=== PATIENT | female | born 1965 | race Two or more races ===

== ENCOUNTER → 2017-07-29 | Emergency (ER) | payer OTHER ==
[~2017-07-29] VITALS: Ht 160 cm; Wt 102.1 kg
[~2017-07-29] MED LIST: AMBIEN10 MG PO; CARAFATE1 G PO; CATAFLAN PO; CIPRO500 MG PO; CLONAZEPAM2 MG PO; COZAAR100 MG PO; DICY10CA PO; DICY20TA PO; FLAGYL500MG PO; FLEXERIL PO; GABAPENTIN800 MG PO; INTESTINEX680 M1 PO; METFORMIN HCL500 M2 PO; NABUMETONE500 MG PO; PERCOCET 5/3251 TAB PO; PROTONIX40 MG PO; TRAMADOL HCL50 MG PO; WELLBUTRIN XL300 MG PO
== END | disposition home or self-care (01) ==
LOC: ER 06:29
DX: K57.32 Diverticulitis of large intestine without perforation or abscess without bleeding (principal)

== ENCOUNTER 2017-09-21 13:06 | Inpatient (IN) | payer OTHER ==
[~2017-09-21] VITALS: Ht 160 cm; Wt 99.8 kg
[2017-09-21] MEDS ORDERED: SYNTHROID50 MCG PO (13:56)
[2017-09-29] MEDS ORDERED: HYOSCYAMINE0.125 M1 SL (09:42)
[2017-09-29] MEDS ORDERED: NEURONTIN300 MG PO (09:42)
[2017-09-29] MEDS ORDERED: POLY119PG PO (09:43)
[2017-09-29] MEDS ORDERED: PERCOCET 5-3251 EACH PO (09:45)
== END 2017-09-29 19:25 | disposition home or self-care (01) | DRG 331 ==
LOC: SURG 09-23 07:55 → O/R 09-23 07:55 → SURH 09-23 12:45 → SURG 09-24 11:00
PROVIDERS: Surgery
PROC: 0DJD8ZZ Inspection of Lower Intestinal Tract, Via Natural or Artificial Opening Endoscopic (ICD-10-PCS; 2017-09-23)
PROC: 0DTN4ZZ Resection of Sigmoid Colon, Percutaneous Endoscopic Approach (ICD-10-PCS; principal; 2017-09-23 12:45)
DX: K57.32 Diverticulitis of large intestine without perforation or abscess without bleeding (principal); N80.5 Endometriosis of intestine; E11.9 Type 2 diabetes mellitus without complications; I10 Essential (primary) hypertension; N83.292 Other ovarian cyst, left side

== ENCOUNTER 2018-08-05 09:06 | Day surgery (SDC) | payer OTHER ==
[~2018-08-05 09:06] MED LIST changes: +HYOSCYAMINE0.125 M1 SL; +NEURONTIN300 MG PO; +PERCOCET 5-3251 EACH PO; +POLY119PG PO; +SYNTHROID50 MCG PO
== END 2018-08-05 13:20 | disposition home or self-care (01) ==
LOC: AMB-ENDOS 09:06
DX: K63.5 Polyp of colon (principal)

== ENCOUNTER 2020-09-18 05:50 | Day surgery (SDC) | payer OTHER ==
[2020-09-18] MEDS ORDERED: NABUMETONE500 MG PO (11:11)
[2020-09-18] MEDS ORDERED: PERCOCET 5-3251 EACH PO (11:11)
== END 2020-09-18 15:00 | disposition home or self-care (01) ==
LOC: CIR.AMB 05:50
PROVIDERS: ATTEND Orthopaedic Surgery
DX: M23.312 Other meniscus derangements, anterior horn of medial meniscus, left knee (principal); M23.322 Other meniscus derangements, posterior horn of medial meniscus, left knee; M65.862 Other synovitis and tenosynovitis, left lower leg; M94.262 Chondromalacia, left knee; Z20.822 Contact with and (suspected) exposure to COVID-19

== ENCOUNTER 2021-05-23 10:00 | Inpatient (IN) | payer OTHER ==
[~2021-05-23] VITALS: Ht 160 cm; Wt 95.3 kg
[2021-05-23] MEDS ORDERED: METFORMIN HCL1000 M1 PO (14:18)
[2021-05-28] MEDS ORDERED: VITAMIN E180 M1 (08:02)
[2021-05-28] MEDS ORDERED: VITAMIN D325 MC2 (08:02)
[2021-05-28] MEDS ORDERED: LISINOPRIL2.5 MG (08:02)
== END 2021-05-30 20:49 | DRG 470 ==
LOC: SURH 05-28 06:00 → O/R 05-28 06:00 → SURH 05-28 07:00
PROVIDERS: ADMIT Orthopaedic Surgery; ATTEND Orthopaedic Surgery
PROC: 0SRD0J9 Replacement of Left Knee Joint with Synthetic Substitute, Cemented, Open Approach (ICD-10-PCS; principal; 2021-05-28 07:00)
DX: M17.12 Unilateral primary osteoarthritis, left knee (principal); D62 Acute posthemorrhagic anemia; M85.662 Other cyst of bone, left lower leg; I10 Essential (primary) hypertension; E03.8 Other specified hypothyroidism; E66.8 Other obesity; M79.7 Fibromyalgia; Z20.822 Contact with and (suspected) exposure to COVID-19

== ENCOUNTER 2021-05-23 12:27 | Outpatient (CLI) | payer OTHER ==
[2021-05-23] MEDS ORDERED: METFORMIN HCL1000 M1 PO (14:18)
== END 2021-05-23 12:36 | disposition home or self-care (01) ==
LOC: RAD 12:27
PROVIDERS: ATTEND Orthopaedic Surgery
DX: R07.9 Chest pain, unspecified (principal)

== ENCOUNTER 2021-10-29 13:09 | Emergency (ER) | payer OTHER ==
[~2021-10-29] VITALS: Ht 160 cm; Wt 90.7 kg
[~2021-10-29 13:09] MED LIST changes: +LISINOPRIL2.5 MG; +METFORMIN HCL1000 M1 PO; +VITAMIN D325 MC2; +VITAMIN E180 M1
== END 2021-10-29 18:46 | disposition home or self-care (01) ==
LOC: ER 13:09
DX: S30.0XXA Contusion of lower back and pelvis, initial encounter (principal); S80.02XA Contusion of left knee, initial encounter; S70.02XA Contusion of left hip, initial encounter; S90.02XA Contusion of left ankle, initial encounter; W18.39XA Other fall on same level, initial encounter; Y93.89 Activity, other specified; Y92.018 Other place in single-family (private) house as the place of occurrence of the external cause; Y99.9 Unspecified external cause status; I10 Essential (primary) hypertension; E11.9 Type 2 diabetes mellitus without complications; Z79.84 Long term (current) use of oral hypoglycemic drugs; Z88.8 Allergy status to other drugs, medicaments and biological substances; Z20.822 Contact with and (suspected) exposure to COVID-19

== ENCOUNTER 2023-06-22 11:07 | Outpatient (CLI) | payer OTHER | END 2023-06-22 11:10 | disposition home or self-care (01) | LOC: SONOGRAMA 11:07 | PROVIDERS: ATTEND Pathology Anatomic Pathology | DX: D34 Benign neoplasm of thyroid gland (principal); E07.89 Other specified disorders of thyroid; E03.1 Congenital hypothyroidism without goiter ==